=== PATIENT | female | born 1995 | race Caucasian/White ===

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

== ENCOUNTER 2017-08-11 18:36 | Emergency (ER) | END 2017-08-11 22:22 | disposition home or self-care (01) ==

== ENCOUNTER 2018-04-05 09:58 | Emergency (ER) | payer BC ==
[~2018-04-05] VITALS: Ht 162.6 cm; Wt 62.0 kg
[~2018-04-05 09:58] MED LIST changes: +ACET325T33 PO; +AZIT500T3 PO; +FAMO-96 PO; +LORA10TA3 PO; +ONDA4TAB14 PO
[2018-04-05 10:02] VITALS: Ht 162.6 cm; Wt 62.0 kg
[2018-04-05] MEDS ORDERED: ACET325T33 PO (11:28)
[2018-04-05] MEDS ORDERED: TRAM50TA2 PO (11:28)
--- NOTE | 2018-04-05 11:48 | ERD ---
ER Documentation Chief Complaint Chief Complaint pt bib self with c/o right knee pain twisted it , HPI 22-year-old female presenting with right knee pain. 2 years ago patient dislocated her knee. Last night she was walking in high heels and all of a sudden felt her kneecap shift. She is able to flex and extend without difficulty but has swelling noted to the knee. Medical history is hypercholesterolemia. Allergic to ibuprofen. Surgical history denies. Social history denies ROS All systems reviewed and are negative except as per history of present illness. Medications Home Meds Active Scripts Acetaminophen* (Tylenol*) 325 Mg Tablet, 2 TAB PO Q6 PRN for PAIN AND OR ELEVATED TEMP, #20 TAB Prov:DANYEL WILL PA-C 04/05/18 Tramadol HCl (Tramadol HCl) 50 Mg Tablet, 50 MG PO Q4 PRN for PAIN, #7 TAB Prov:DANYEL WILL PA-C 04/05/18 Ondansetron (Ondansetron Odt) 4 Mg Tab.rapdis, 4 MG PO Q6H PRN for NAUSEA AND/OR VOMITING, #10 TAB Prov:JENNY MORENO PA-C 08/11/17 Famotidine* (Pepcid*) 20 Mg Tablet, 20 MG PO BID for 30 Days, TAB Prov:JENNY MORENO PA-C 08/11/17 Loratadine* (Loratadine*) 10 Mg Tablet, 10 MG PO DAILY PRN for NASAL CONGESTION, #12 TAB Prov:TERRI HUERTAS MD 08/03/16 Azithromycin* (Zithromax*) 500 Mg Tablet, 500 MG PO DAILY for 5 Days, TAB Prov:TERRI HUERTAS MD 08/03/16 Acetaminophen* (Tylenol*) 325 Mg Tablet, 2 TAB PO Q8 PRN for FEVER, #30 TAB Prov:TERRI HUERTAS MD 08/03/16 Moxifloxacin Hcl* (Vigamox*) 0.5% - 3 Ml Opht, 1 DROP BOTH EYES TID for 7 Days, EA Prov:CAROL DIXON MD 02/02/16 Acetaminophen (Tylenol) 500 Mg Tab, 500 MG PO Q6, #30 TAB 0 Refills Prov:EPHRAIM RODRIGUEZ PA-C 04/21/15 Allergies Allergies: Coded Allergies: ibuprofen (Unverified Allergy, Unknown, RASH, 08/03/16) PMhx/Soc Medical and Surgical Hx: pt denies Surgical Hx History of Surgery: No Anesthesia Reaction: No Hx Neurological Disorder: No Hx Respiratory Disorders: No Hx Cardiac Disorders: Yes (HIGH CHOLESTEROL) Hx Psychiatric Problems: No Hx Miscellaneous Medical Probl: Yes (gastritis) Hx Alcohol Use: No Hx Substance Use: No Hx Tobacco Use: No Smoking Status: Never smoker FmHx Family History: No diabetes, No coronary disease, No other Physical Exam Vitals Vital Signs Date Temp Pulse Resp B/P (MAP) Pulse Ox O2 O2 Flow FiO2 Time Delivery Rate 04/05/18 98.5 62 20 110/63 100 10:02 (79) Physical Exam GENERAL: The patient is well-appearing, well-nourished, in no acute distress CHEST: Clear to auscultation bilaterally. There are no rales, wheezes or rhonchi. HEART: Regular rate and rhythm. No murmurs, clicks, rubs or gallops. No S3 or S4. EXTREMITIES: Normal flexion and extension. Swelling noted to the knee With no obvious deformity. No valgus or varus deformity. Strength 5 out of 5 with fle xion and extension NEUROLOGIC: Alert and oriented. Cranial nerves II through XII intact. Motor strength in all 4 extremities with 5 out of 5 strength. Sensation grossly intact. Normal speech and gait. Babinski negative. SKIN: There is no apparent rash or petechiae. The skin is warm and dry. Results 24 hrs Laboratory Tests Test 04/05/18 11:40 POC Beta HCG, Qualitative NEGATIVE Procedures/MDM DIAGNOSTIC IMAGING REPORT Patient: JUAN M HYLTON : 1995 Age: 22 Sex: F MR #: [id number] DOS: 04/05/18 1038 Ordering MD: MOUSTAPHA WILL PA-C Location: [facility] Room/Bed: PROCEDURE: XR Knee. CLINICAL INDICATION: Right knee pain following injury. TECHNIQUE: 3 views of the right knee are available for review. COMPARISON: CR KNEE 04/21/2015; CR KNEE 07/16/2012 FINDINGS: The osseous structures demonstrate normal alignment and mineralization. No acute fracture or dislocation is identified. There is no periostitis or osteochondral lesion. The joint spaces are well preserved. The soft tissues are unremarkable. IMPRESSION: Unremarkable right knee x-ray series. ER Course: Eder wrap given ED. Crutches given ED. MDM: 22-year-old female presenting with knee pain. Patient likely had a subluxation of the knee which resolved on its own. Patient does not require surgical intervention at this time. I will suspicion for acute fracture dislocation. Patient is recommended to follow-up with orthopedics. Patient is told symptoms change or worsen to return immediately to the ER. All questions answered at the Departure Diagnosis: Primary Impression: Knee pain Condition: Stable Patient Instructions: Knee Sprain Referrals: [facility] YOU HAVE RECEIVED A MEDICAL SCREENING EXAM AND THE RESULTS INDICATE THAT YOU DO NOT HAVE A CONDITION THAT REQUIRES URGENT TREATMENT IN THE EMERGENCY DEPARTMENT. FURTHER EVALUATION AND TREATMENT OF YOUR CONDITION CAN WAIT UNTIL YOU ARE SEEN IN YOUR DOCTORS OFFICE WITHIN THE NEXT 1-2 DAYS. IT IS YOUR RESPONSIBILITY TO MAKE AN APPOINTMENT FOR FOLOW-UP CARE. IF YOU HAVE A PRIMARY DOCTOR --you should call your primary doctor and schedule an appointment IF YOU DO NOT HAVE A PRIMARY DOCTOR YOU CAN CALL OUR PHYSICIAN REFERRAL HOTLINE AT IF YOU CAN NOT AFFORD TO SEE A PHYSICIAN YOU CAN CHOSE FROM THE FOLLOWING [facility] [address] [facility]. [facility] [address] [facility] [facility] [address] [facility] [address] [facility]. [facility] [address] [facility]. [facility]. [address] Additional Instructions: FOLLOW UP WITH YOUR PRIMARY CARE PHYSICIAN TOMORROW.Return to this facility if you are not improving as expected. DANYEL WILL PA-C Apr 05, 2018 11:48
== END 2018-04-05 11:50 | disposition home or self-care (01) ==
LOC: FTE 09:58
DX: M25.561 Pain in right knee (principal)
CPT/HCPCS: 73562; 81025; Z7502

== ENCOUNTER 2018-08-24 11:34 | Emergency (ER) | payer BC ==
[~2018-08-24] VITALS: Ht 160 cm; Wt 64.0 kg
[~2018-08-24 11:34] MED LIST changes: +TRAM50TA2 PO
[2018-08-24 11:36] VITALS: BP 109/60; PULSE 76; RESP 17; Ht 160 cm; Wt 64.0 kg
[2018-08-24] MEDS ORDERED: BEN50 PO (11:57)
[2018-08-24] MEDS ORDERED: MED4DP PO (11:57)
--- NOTE | 2018-08-24 12:03 | ERD ---
ER Documentation Chief Complaint Chief Complaint GENERALIZED RASH THAT "COMES & GOES" X 4 DAYS HPI This is a 23-year-old female presents ED with complaints of a rash that comes and goes over the past 4 days. 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 Rash resembles hives. Patient states that she tried a new Pasta 5 days ago as well as took Plan B 8 days ago and the hives have been off and on for the past 4 days. Patient admits to itching. Patient states that she has been taking Praveen adryl and that resolved the hives but over the past couple days she stopped taking the Benadryl because she did not like feeling drowsy. Patient states that the rash is coming less often than initially. Denies using any new products or exposure to any new plants. Denies tongue swelling, lip swelling, shortness breath, trouble breathing and all other symptoms. ROS All systems reviewed and are negative except as per history of present illness. Medications Home Meds Active Scripts Diphenhydramine Hcl* (Benadryl*) 50 Mg Cap, 50 MG PO Q6H PRN for ITCHING/RASH, #30 CAP Prov:IVONNE JOSEPH PA-C 08/24/18 Methylprednisolone* (Medrol* DOSE PACK) 4 Mg/Dose-Pack Tab.ds.pk, 4 MG PO . DIRECTED for 5 Days, PACKET Prov:IVONNE JOSEPH PA-C 08/24/18 Acetaminophen* (Tylenol*) 325 Mg Tablet, 2 TAB PO Q6 PRN for PAIN AND OR ELEVATED TEMP, #20 TAB Prov:DANYEL WILL PA-C 04/05/18 Tramadol HCl (Tramadol HCl) 50 Mg Tablet, 50 MG PO Q4 PRN for PAIN, #7 TAB Prov:DANYEL WILL PA-C 04/05/18 Ondansetron (Ondansetron Odt) 4 Mg Tab.rapdis, 4 MG PO Q6H PRN for NAUSEA AND/OR VOMITING, #10 TAB Prov:JENNY MORENO PA-C 08/11/17 Famotidine* (Pepcid*) 20 Mg Tablet, 20 MG PO BID for 30 Days, TAB Prov:JENNY MORENO PA-C 08/11/17 Loratadine* (Loratadine*) 10 Mg Tablet, 10 MG PO DAILY PRN for NASAL CONGESTION, #12 TAB Prov:TERRI HUERTAS MD 08/03/16 Azithromycin* (Zithromax*) 500 Mg Tablet, 500 MG PO DAILY for 5 Days, TAB Prov:TERRI HUERTAS MD 08/03/16 Acetaminophen* (Tylenol*) 325 Mg Tablet, 2 TAB PO Q8 PRN for FEVER, #30 TAB Prov:TERRI HUERTAS MD 08/03/16 Moxifloxacin Hcl* (Vigamox*) 0.5% - 3 Ml Opht, 1 DROP BOTH EYES TID for 7 Days, EA Prov:CAROL DIXON MD 02/02/16 Acetaminophen (Tylenol) 500 Mg Tab, 500 MG PO Q6, #30 TAB 0 Refills Prov:EPHRAIM RODRIGUEZ PA-C 04/21/15 Allergies Allergies: Coded Allergies: ibuprofen (Unverified Allergy, Unknown, RASH, 08/03/16) PMhx/Soc History of Surgery: No Anesthesia Reaction: No Hx Neurological Disorder: No Hx Respiratory Disorders: No Hx Cardiac Disorders: Yes (HIGH CHOLESTEROL) Hx Psychiatric Problems: No Hx Miscellaneous Medical Probl: Yes (gastritis) Hx Alcohol Use: No Hx Substance Use: No Hx Tobacco Use: No FmHx Family History: No diabetes Physical Exam Vitals Vital Signs Date Temp Pulse Resp B/P (MAP) Pulse Ox O2 O2 Flow FiO2 Time Delivery Rate 08/24/18 99.1 76 17 109/60 98 11:36 (76) Physical Exam Physical Exam Vitals signs: Reviewed by me. General: Well developed, well nourished, in no acute distress. Patient is awake and alert. Head: Normocephalic, atraumatic. Eyes: Normal conjunctiva ENT: Pharynx is clear, Moist mucous membranes, external ears, nose and mouth normal, no tongue swelling, no lip swelling, no uvula swelling Neck: Supple, no masses, lymphadenopathy or JVD Respiratory: Clear to auscultation bilaterally with no wheezing, rhonchi, rales, no distress Cardiovascular: RRR, no murmurs, rubs, or gallops Neurologic: Alert and oriented, moving all extremities, normal speech, no focal weakness, no cerebellar signs. Normal mentation Skin: warm and dry, No rash Psych: Normal mood Procedures/MDM ER COURSE: The patient was stable throughout ED course. I kept the patient and/or family informed of laboratory and diagnostic imaging results throughout the emergency room course. The patient was promptly evaluated and a treatment plan was devised based on H&P and other data. This plan was discussed with the patient who agreed and had no further questions or concerns prior to discharge. MEDICAL DECISION MAKING: This is a 23-year-old female presents ED with complaints of hives off and on for the past 4 days. Patient does not have a rash currently but is showing me a picture of her legs from 1 hour prior to arrival in ED and photo shows hives. patient's lungs are clear, vitals are stable, and is having no signs of anaphylaxis. Patient has no wheezing, rhonchi, rales, tonsillar adenopathy, angioedema, airway compromise, hoarseness, tongue edema or uvulitis or signs of respiratory distress. History and physical examination other data not consistent with emergent process including life threatening rash or anaphylaxis. Vitals are stable and patient can be managed with close outpatient follow-up. Advised patient to follow up with primary care in the next 48 hours. Advised patient that if she is experiencing any shortness of breath, tongue swelling, trouble breathing, wheezing that he needs to report back to ER immediately. Patient was also referred to see an digital publishing specialist for allergy testing. DISPOSITION PLAN: We discussed follow up with the patient's primary care doctor within 24 to 48 hours. Patient counseled regarding my diagnostic impression and care plan. Prior to discharge all questions answered. Pt agrees with treatment plan and understands strict return precautions. Precautionary instructions provided including instructions to return to the ER if not improving or for any worsening or changing symptoms or concerns. ExitCare instructions provided. Prior to discharge, patients vital signs have been reviewed SPECIALIST FOLLOW UP RECOMMENDED: allergy testing Patient has been advised to follow up with primary care in 1-2 days. Disclaimer: Inadvertent spelling and grammatical errors are likely due to EHR/dictation software use and do not reflect on the overall quality of patient care. Also, please note that the electronic time recorded on this note does not necessarily reflect the actual time of the patient encounter. Departure Diagnosis: Primary Impression: Rash and other nonspecific skin eruption Condition: Stable Patient Instructions: Hives Referrals: [facility] YOU HAVE RECEIVED A MEDICAL SCREENING EXAM AND THE RESULTS INDICATE THAT YOU DO NOT HAVE A CONDITION THAT REQUIRES URGENT TREATMENT IN THE EMERGENCY DEPARTMENT. FURTHER EVALUATION AND TREATMENT OF YOUR CONDITION CAN WAIT UNTIL YOU ARE SEEN IN YOUR DOCTORS OFFICE WITHIN THE NEXT 1-2 DAYS. IT IS YOUR RESPONSIBILITY TO MAKE AN APPOINTMENT FOR FOLOW-UP CARE. IF YOU HAVE A PRIMARY DOCTOR --you should call your primary doctor and schedule an appointment IF YOU DO NOT HAVE A PRIMARY DOCTOR YOU CAN CALL OUR PHYSICIAN REFERRAL HOTLINE AT IF YOU CAN NOT AFFORD TO SEE A PHYSICIAN YOU CAN CHOSE FROM THE FOLLOWING [facility] [address] [facility] [address] [facility] [address] [facility] [address] [facility] [address] [facility] [address] [facility]. [facility]. [address] Additional Instructions: Patient advised to return to the ED immediately for new or worsening symptoms. Patient advised to follow up with primary care provider in the next 24-48 hours. Patient verbalized understanding and agrees with treatment plan and course of action. If patient has no primary care they may follow up with one of the [facility] clinics listed on the following page or one of the options listed below [facility] + [facility] [address] [place] [id number] or [facility] [address] [place] [address] or [facility] [address] [place] [address] IVONNE JOSEPH PA-C Aug 24, 2018 12:03
== END 2018-08-24 12:06 | disposition home or self-care (01) ==
LOC: FTE 11:34
DX: R21 Rash and other nonspecific skin eruption (principal)
CPT/HCPCS: 99283